=== PATIENT | female | born 1955 | race Caucasian/White ===

== ENCOUNTER 2019-06-22 15:59 | Emergency (ER) | payer MEDICARE, SELFPAY ==
[2019-06-22 16:13] VITALS: BP 141/74; PULSE 75; RESP 20; TEMP 37.2; O2SAT 99
--- NOTE | 2019-06-22 16:17 | DI.RAD.S_ITS ---
PROCEDURE: XR KNEE LT 3V INDICATIONS: open injury to knee cap TECHNIQUE: 3 views of the knee were acquired. COMPARISON: None. FINDINGS: Bones: No displaced fractures or dislocations. No suspicious bony lesions. Soft tissues: No joint effusion. No suspicious soft tissue calcifications. Soft tissue laceration on the anterior margin of the knee appears to be present. No radiopaque foreign bodies are evident. IMPRESSION: No displaced knee fractures are appreciated. Dictated by: Andrey Neal M.D. on 06/22/2019 at 15:53 Approved by: Andrey Neal M.D. on 06/22/2019 at 15:57
[2019-06-22 20:50] VITALS: BP 151/89; PULSE 67; RESP 14; O2SAT 100
[2019-06-22] MEDS: LIDOCAINE 2% INJ MDV 1 ML SUBCUT (21:59)
--- NOTE | 2019-06-22 22:30 | ED.LOWEXIN ---
HPI - Extremity Injury (Lower) General Chief Complaint: Extremity Injury, Lower Stated Complaint: L knee Laceration Time Seen by Provider: 06/22/19 20:32 Source: patient Mode of arrival: ambulatory Limitations: no limitations History of Present Illness HPI Narrative: Patient presents emergency department complaining of knee laceration after tripping and [place] Patient states she landed on her knee on the metal grating of the ramp. Patient denies any other injuries. She did not attempt to ambulate after the injury, due to the size of her wound. No other complaints at this time. Patient does note that her last tetanus shot was about 10 years ago. Related Data Allergies Allergy/AdvReac Type Severity Reaction Status Date / Time Sulfa (Sulfonamide Allergy Flushing Verified 06/22/19 16:13 Antibiotics) Review of Systems Constitutional Denies chills, Denies fever(s), Denies lethargy and Denies weakness Eyes Denies change in vision, Denies eye discharge, Denies irritation and Denies loss of vision ENT Ears, Nose, Mouth, and Throat: Denies change in voice, Denies neck pain and Denies sore throat Cardiovascular Denies chest pain, Denies irregular heart rhythm, Denies lightheadedness, Denies palpitations, Denies dyspnea, Denies dyspnea on exertion and Denies orthopnea Respiratory Denies cough, Denies dyspnea, Denies dyspnea on exertion and Denies wheezing Gastrointestinal Gastrointestinal: Denies abdominal pain, Denies change in bowel habits, Denies diarrhea, Denies nausea and Denies vomiting Genitourinary Denies hematuria, Denies flank pain, Denies urinary incontinence and Denies urinary urgency Musculoskeletal Denies neck pain Integumentary/Breasts Denies pruritus, Denies erythema, Denies rash and Denies wounds Comments: Laceration left knee Neurologic Denies confusion, Denies loss of vision and Denies weakness Psychiatric Denies anxiety, Denies confusion, Denies depression, Denies homicidal ideation and Denies suicidal ideation Endocrine Denies palpitations Hematologic/Lymphatic Denies easy bruising Allergic/Immunologic Denies wheezing [facility] Medical History Healthy adult (Acute) Surgical History No pertinent past surgical history (Acute) Social History Smoking Status: Never smoker Social History Smoking Status: Never smoker Exam Initial Vital Signs Initial Vital Signs: Vital Signs Temperature 98.9 F 06/22/19 16:13 Pulse Rate 75 06/22/19 16:13 Respiratory Rate 20 06/22/19 16:13 Blood Pressure 141/74 H 06/22/19 16:13 Pulse Oximetry 99 06/22/19 16:13 Const General: cooperative and well developed Nutritional Appearance: well nourished Orientation: alert, awake, oriented x3 and not confused HENMA Head: normocephalic and atraumatic Ears: external ears normal and TM's normal bilaterally Nose: external nose normal and No nasal discharge Face and sinus: sinuses nontender, face symmetric, no sinus tenderness and No dry mucous membranes Mouth: oral mucosae normal and moist mucous membranes Teeth and gingiva: dentition normal Throat: tonsils normal and uvula midline Eyes General: appearance normal, both eyes and all related structures Eyelids: eyelids normal Conjunctivae: conjunctivae normal Sclera: sclerae normal Pupils: PERRL EOM: EOM intact bilaterally Neck Neck: normal visual inspection, trachea midline, No lymphadenopathy, No midline deformity and No JVD Lymphatic: No lymphedema Chest Chest: normal inspection of the chest Resp Effort & Inspection: normal respiratory effort, able to speak in complete sentences, no respiratory distress and no use of accessory muscles Cardio Rate: regular rate Rhythm: regular rhythm Pulses: normal peripheral pulses GI Inspection: non-distended Palpation: soft, no hepatosplenomegaly, No guarding, No pulsatile mass and No tender Auscultation: normal bowel sounds Back/Spine/Pelvis Back: No CVA tenderness Cervical Spine: cervical ROM normal and No pain with cervical ROM Thoracic/Lumbar Spine: thoracic and lumbar spine normal to inspection Skin General: no rashes or lesions noted, No jaundice and No petechiae Other: Patient has an approximately 12 cm, curvilinear laceration to her left knee. No bony deformity is underlying. Wound is approximately 5-10 mm in depth, and involves the skin and subcutaneous adipose tissue. No foreign bodies noted. Neuro General: alert, oriented x3, gait normal and no focal motor deficits Speech: speech normal Extrem General: full ROM Other: Full range of motion left knee. Psych Appearance: well kempt Mental Status: mental status grossly normal Attitude: cooperative Thought Content: normal and suicidality Judgment: judgment good Procedures Laceration Repair Laceration 1: Site: lower extremity Side (If applicable): left Size (cm): 12 Description: linear Depth: simple, single layer Local Anesthetic: lidocaine 2% Amount of anesthesia used (mL): 20 Pre-repair: wound explored and irrigated extensively Skin layer closed with: nylon Size (cm): 4-0 Number of sutures: 21 Technique: simple, interrupted Course Course Narrative: Patient's wound was repaired as above. Tetanus was updated. I did answer the patient's questions, and we discussed wound care at home. We also discussed signs of infection, timeline for suture removal, and the usual indications for return. Orders Ordered: ED Orders 06/22/19 16:17 XR knee LT 3V Stat Discontinued Medications Bacitracin (Bacitracin) 1 applic TOP NOW ONE Stop: 06/22/19 22:27 Lidocaine HCl (Xylocaine 2%) 1 ml SUBCUT NOW ONE Stop: 06/22/19 21:10 Vital Signs - 8 hr 06/22/19 16:13 06/22/19 20:50 Temperature 98.9 F Pulse Rate 75 67 Respiratory Rate 20 14 Blood Pressure 141/74 H Blood Pressure [Right Arm] 151/89 H Pulse Oximetry 99 100 MDM - Extremity Injury (Lower) Medical Records Attestation: I reviewed the patient's medical records. Discharge Plan Departure Patient Disposition: Home Clinical Impression: Knee laceration Qualifiers: Encounter type: initial encounter Laterality: left Qualified Code(s): S81.012A - Laceration without foreign body, left knee, initial encounter Instructions: DI for Laceration Repair Activity Restrictions/Additional Instructions: Please keep your wound clean and dry. Do not immerse, rub, or soak rub the wound until sutures are removed. You may let water run over the area, however. You will need to have your wound rechecked by your primary doctor in about 10 days. Please call tomorrow to make an appointment. Sutures should be ready for removal at that time. You may use ibuprofen and/or Tylenol to help with the discomfort. You may apply ice packs to the area, as well, to help with swelling. This may be done for 20 minutes at a time with at least 30 minutes off of ice between icing sessions. You will most likely have some swelling associated with the wound, secondary to its size, and some of this may track down to your ankle, due to gravity. However, if you develop redness that is progressively spreading away from the wound, or if your wound splits open and appears to be draining pus, and you should have it rechecked right away.
[2019-06-22] MEDS: BACITRACIN OINT 0.9 GM PCKT 1 APPLIC TOP (22:35)
[2019-06-22] MEDS: TET,DIPH,PERTUSS(ACELL),VAC/PF 0.5 ML SYRINGE IM (22:45)
[2019-06-22 22:46] VITALS: BP 146/75; PULSE 65; RESP 16; TEMP 36.6; O2SAT 100
== END 2019-06-22 22:51 | disposition home or self-care (01) ==
PROVIDERS: Emergency Provider Emergency Medicine
DX: S81.012A Laceration without foreign body, left knee, initial encounter (principal); W01.0XXA Fall on same level from slipping, tripping and stumbling without subsequent striking against object, initial encounter
CPT/HCPCS: 12004; 73562; 90471; 99282; 99283; 90715